=== PATIENT | male | born 1965 | race Caucasian/White ===

== ENCOUNTER 2017-08-07 06:13 | Day surgery (SDC) | payer BC ==
[2017-08-07] MEDS: LR 1,000 ML IV (06:31)
[2017-08-07] MEDS ORDERED: LIDOCAINE 1% MDV 20ML VIAL SQ (06:45)
[2017-08-07] MEDS ORDERED: ROCURONIUM BROMIDE 50 MG/5 ML VIAL As Ordered (07:14)
[2017-08-07] MEDS ORDERED: LIDOCAINE 2% INJ 100 MG/5 ML SDV (FOR ANES.) As Ordered (07:14)
[2017-08-07] MEDS ORDERED: PROPOFOL 200 MG/20 ML VIAL As Ordered (07:14)
[2017-08-07] MEDS ORDERED: MIDAZOLAM INJ 2 MG/2 ML VIAL (J2250) As Ordered (07:14)
[2017-08-07] MEDS ORDERED: fentaNYL 100 MCG/2 ML INJECTION (J3010) As Ordered ×2 (07:15→08:39)
[2017-08-07] MEDS ORDERED: dexameTHASONE 4 MG/ML 1ML VIAL (J1100) As Ordered (07:38)
[2017-08-07] MEDS: THROMBIN SOLN 5,000 UNITS VIAL As Ordered (07:39)
[2017-08-07] MEDS ORDERED: PHENYLephrine HCL 500 MCG/5 ML (100MCG/ML) SYRINGE (J2370) As Ordered (07:55)
[2017-08-07] MEDS: CETACAINE SPRAY 5GM As Ordered (08:00)
[2017-08-07] MEDS: EPINEPHrine 1MG/10ML SYRINGE 1.5IN As Ordered (08:00)
[2017-08-07] MEDS ORDERED: ONDANSETRON 4MG/2ML VIAL (J2405) As Ordered (08:07)
[2017-08-07] MEDS: LIDOCAINE 1% MDV 20ML VIAL As Ordered (08:24)
[2017-08-07] MEDS: LIDOCAINE VISCOUS 2% SOLN 15ML UDC As Ordered (08:24)
[2017-08-07] MEDS: LIDOCAINE 4% TOPICAL SOLN 50 ML BTL As Ordered (08:24)
[2017-08-07] MEDS ORDERED: NEOSTIGMINE 10 MG/10 ML VIAL (J2710) As Ordered (08:31)
[2017-08-07] MEDS ORDERED: GLYCOPYRROLATE INJ 0.2 MG/ML 2 ML VIAL As Ordered (08:31)
[2017-08-07] MEDS ORDERED: fentaNYL 100 MCG/2 ML INJECTION (J3010) IV (10:30)
[2017-08-07] MEDS ORDERED: PERCOCET 5MG/325MG TAB PO (10:30)
[2017-08-07] MEDS ORDERED: ONDANSETRON 4MG/2ML VIAL (J2405) IV (10:30)
[2017-08-07] MEDS ORDERED: LR 1,000 ML IV (10:30)
[2017-08-07 11:53] LABS: SOURCE RIGHT LOWER LOBE
[2017-08-07 11:54] LABS: APPEARANCE TURBID (CLEAR); BAL DIFF IF INDICATED? YES (NO); BAL WBC 709.929 CELLS/uL (0-10); DILUTION FACTOR 1; WBC BAL COUNTED 639
[2017-08-07 13:00] LABS: MONOCYTES/MACROPHAGES, BAL 24 %
[2017-08-07 13:03] LABS: CC BAL DIFF EXAM CYTOCENTRIFUGE
== END 2017-08-07 10:36 | disposition home or self-care (01) ==
LOC: M SDC 06:13
DX: R91.8 Other nonspecific abnormal finding of lung field (principal); I10 Essential (primary) hypertension; E78.5 Hyperlipidemia, unspecified; K21.9 Gastro-esophageal reflux disease without esophagitis; M12.9 Arthropathy, unspecified; G56.00 Carpal tunnel syndrome, unspecified upper limb; R06.02 Shortness of breath; Q60.0 Renal agenesis, unilateral; Z79.899 Other long term (current) drug therapy; Z79.82 Long term (current) use of aspirin; Z87.81 Personal history of (healed) traumatic fracture; Z72.0 Tobacco use
CPT/HCPCS: 31623

== ENCOUNTER → 2017-10-14 | Outpatient (REF) | LOC: M SMT 09:48 | DX: M54.5 Low back pain (principal) ==

== ENCOUNTER → 2018-10-07 | Outpatient (REF) ==
[~2018-10-07] MED LIST: ASPI81TA26 PO; CALCTAB29 PO; CAND8TAB PO; COLA100C5 PO; GABA600T4 PO; HYDR-3713 PO; LORA-243 PO; OMEP20CA3 PO; PRAV40TA2 PO; ZONI50CA3 PO
--- NOTE | 2018-10-07 13:39 | REP ---
Clinical: Pain. Technique: AP, lateral, bilateral oblique views of the left ankle. Comparison: None. Findings: Evidence for prior fixation involving the medial malleolus. No acute fracture dislocation. No significant arthritic changes. No soft tissue swelling or subcutaneous emphysema. Impression: Previous medial malleolar fixation. Electronically Signed by Keegan Keith MD 10/07/2018 01:32 P
--- NOTE | 2018-10-07 13:50 | REP ---
Clinical: Pain. Technique: AP, lateral, open mouth views of the cervical spine. Findings: Evidence for prior C5-6 anterior fixation. Alignment and lordosis maintained. No acute fracture / compression injury or subluxation. Minimal age-related changes. Impression: No acute fracture or subluxation. Mild age-related changes. Previous anterior fixation. Electronically Signed by Keegan Keith MD 10/07/2018 01:41 P
== END ==
LOC: M SMT 12:55
PROVIDERS: ATTEND Internal Medicine
DX: M79.672 Pain in left foot (principal); Z98.1 Arthrodesis status

== ENCOUNTER → 2021-11-26 | Outpatient (CLI) | payer BC, MEDICARE ==
[~2021-11-26] MED LIST changes: -CAND8TAB PO; +CAND8TAB8 PO; +OMEP1CAP73 PO; -OMEP20CA3 PO; +ZONI50CA11 PO; -ZONI50CA3 PO
== END ==
LOC: M RAD 13:33
PROVIDERS: ATTEND Internal Medicine Endocrinology, Diabetes & Metabolism
DX: E05.00 Thyrotoxicosis with diffuse goiter without thyrotoxic crisis or storm (principal)
CPT/HCPCS: 79005; A9517